=== PATIENT | male | born 1985 | race American Indian/Alaskan Native ===

== ENCOUNTER 2016-06-29 16:51 | Emergency (ER) | payer SELFPAY ==
[2016-06-29] MEDS ORDERED: TORADOL IM ONE (20:00)
[2016-06-29] MEDS ORDERED: VALIUM PO ONE (20:00)
--- NOTE | 2016-06-29 20:03 | Emergency Department Report ---
Upper Extremity - HPI Chief Complaint: Extremity Injury, Upper Stated Complaint: RT ARM PAIN Time Seen by Provider: 06/29/16 19:59 Upper Extremity: Right Wrist Occurred When: >5 Days Severity: moderate Symptoms: Yes Pain with Movement, Yes Limited Range of Movement, Yes Swelling, No Deformity, No Numbness, No Weakness Other History: 30-year-old male past medical history none presents with complaint of 1-1/2 weeks of right distal forearm and wrist pain. Patient states that area above his right wrist feels very sore, has some difficulty ranging right wrist extending right wrist. Animal swelling generally to region. Denies any fever or chills, denies any direct trauma. Works as a hairdresser and plays instruments, states that during course of playing instruments this week pain became worse and right wrist region. ED Review of Systems ROS: Stated complaint: RT ARM PAIN Other details as noted in HPI ED Past Medical Hx - Past Medical History Previous Medical History?: Yes Hx Hypertension: Yes Hx Kidney Stones: Yes - Surgical History Past Surgical History?: Yes Additional Surgical History: finger - Social History Smoking Status: Current Every Day Smoker Substance Use Type: Alcohol - Medications Home Medications: Home Medications Medication Instructions Recorded Confirmed Last Taken Type Ibuprofen [Motrin] 800 mg PO Q8HR PRN #30 tablet 03/10/15 Unknown Rx traMADol [Ultram] 50 mg PO Q6HR PRN #20 tablet 03/10/15 Unknown Rx Acetaminophen/Codeine [Tylenol #3] 1 tab PO Q6H PRN #20 tab 05/02/15 Unknown Rx Cyclobenzaprine HCl [Flexeril 5 MG 5 mg PO Q8HR PRN #12 tab 10/17/15 Unknown Rx TAB] Cyclobenzaprine [Flexeril] 10 mg PO TID PRN #15 tablet 06/29/16 Unknown Rx Naproxen [Naprosyn TAB] 500 mg PO BID PRN #25 tablet 06/29/16 Unknown Rx Upper Extremity Exam - Exam General: Vital signs noted. No distress. Alert and acting appropriately. Head and Torso: No HEENT Abnormality, No Neck Tenderness, No Chest/Lungs Abnormality, No Abdominal Tenderness, No Back Tenderness Shoulder Exam: Yes Normal Range of Motion in Shoulder, No Shoulder Tenderness, No Clavicle Tenderness, No Shoulder Deformity, No AC Joint Tenderness Arm Exam: No Arm/Humerus Tenderness, No Arm Deformity Elbow: No Elbow Tenderness, No Normal Range of Motion in Elbow, No Elbow Deformity Forearm: Yes Forearm Tenderness (slight distal forearm tenderness on extensor side), No Forearm Deformity, No Pain with Pronation, No Pain with Supination Wrist: Yes Wrist Tenderness (slight tenderness distal ulnar region on deep palpation), Yes Normal ROM in Wrist, No Wrist Deformity, No Snuffbox Tenderness (patient does not have any snuffbox tenderness on exam), No Pain with Axial Thumb Compression Hand: Yes Hand Tenderness (minor amount of tenderness on the dorsal aspect of hand), Yes Normal ROM in Digit(s), No Hand Deformity, No Digit Tenderness, No Digit(s) Deformity, No Tendon Dysfunction CMS Exam: Yes Normal Distal Pulses (strong distal radial and ulnar pulses on palpation), Yes Normal Capillary Refill (capillary refill less than one second all fingers), Yes Normal Distal Sensation (normal sensation to touch and proprioception in all fingers), No Broken Skin ED Course Vital Signs 06/29/16 17:14 Temperature 98.3 F Pulse Rate 82 Respiratory 18 Rate Blood Pressure 136/75 O2 Sat by Pulse 95 Oximetry ED Medical Decision Making - Medical Decision Making A/P: Right forearm and wrist tendinitis 1-case discussed with Dr. Sanderson who also examined patient, distal wrist and forearm neurovascularly intact capillary refill less than one second all digits range of motion all digits intact no signs of erythema or cellulitis on clinical inspection distal radial pulse and ulnar pulses strong and intact. Dr. Sanderson agrees there are no signs of infection cellulitis or appearance of infectious tenosynovitis based on clinical exam. 2-Kem wrap, RICE therapy, naproxen and Flexeril when necessary short course 3-referral to primary care and orthopedics 4-I educated patient on signs of cellulitis and showed him pictures advised them that if he notices any signs of cellulitis redness significant pallor or if skin becomes hot to touch to return to the ED. Patient expressed understanding of these instructions Critical care attestation.: If time is entered above; I have spent that time in minutes in the direct care of this critically ill patient, excluding procedure time. ED Disposition Clinical Impression: Wrist tendonitis Disposition: DISCHARGED TO HOME OR SELFCARE Is pt being admited?: No Does the pt Need Aspirin: No Condition: Stable Instructions: Tendinitis (ED), RICE Therapy (ED) Prescriptions: Cyclobenzaprine [Flexeril] 10 mg PO TID PRN #15 tablet PRN Reason: Muscle Spasm Naproxen [Naprosyn TAB] 500 mg PO BID PRN #25 tablet PRN Reason: Pain Referrals: [facility] [Provider Group] - 3-5 Days EDUARD AVILES MD [Staff Physician] - 3-5 Days LU ZAYAS MD [Staff Physician] - 3-5 Days Forms: Accompanied Note, Work/School Release Form(ED) Time of Disposition: 21:17
--- NOTE | 2016-06-29 21:02 | XRay Report ---
FINAL REPORT PROCEDURE: XR WRIST 2V RT TECHNIQUE: RIGHT wrist radiographs, AP and lateral views. X-ray wrist HISTORY: wrist pain and swelling COMPARISON: No prior studies are available for comparison. FINDINGS: Fracture(s)and/or Dislocation(s): None. Alignment: Normal. Joint space(s): Normal. Soft tissues: Normal. Bone mineralization: Normal. Foreign bodies: None. IMPRESSION: Normal Examination
[2016-06-29 21:36] VITALS: BP 136/79
== END 2016-06-29 21:35 | disposition home or self-care (01) ==
LOC: ED 16:51
DX: M77.9 Enthesopathy, unspecified (principal); I10 Essential (primary) hypertension; F17.200 Nicotine dependence, unspecified, uncomplicated
CPT/HCPCS: 29125; 73100; 96372; 99284; J1885

== ENCOUNTER 2016-07-21 21:59 | Emergency (ER) | payer OTHER ==
[2016-07-21] MEDS ORDERED: TYLENOL ONE (22:46)
[2016-07-21] MEDS ORDERED: TYLENOL PO ONE (22:49)
[2016-07-22] MEDS ORDERED: MOTRIN PO ONE (03:36)
--- NOTE | 2016-07-22 03:37 | Emergency Department Report ---
- General Chief Complaint: Upper Respiratory Infection Stated Complaint: COUGH/CHEST DISCOMFORT Time Seen by Provider: 07/22/16 03:01 Source: patient Mode of arrival: Ambulatory Limitations: No Limitations - History of Present Illness Initial Comments: 30-year-old male smoker presents with 2 days of fevers chills body aches productive cough sore throat. Patient states cough has greenish yellow sputum. Is awake alert and oriented 3 denies any chest pain but states he feels very congested. Denies any recent travel and smokes daily. MD Complaint: fever, cough Onset/Timin -: days(s) Severity: moderate Severity scale (0 -10): 6 Consistency: constant - Related Data Previous Rx's Medication Instructions Recorded Last Taken Type Ibuprofen [Motrin] 800 mg PO Q8HR PRN #30 tablet 03/10/15 Unknown Rx traMADol [Ultram] 50 mg PO Q6HR PRN #20 tablet 03/10/15 Unknown Rx Acetaminophen/Codeine [Tylenol #3] 1 tab PO Q6H PRN #20 tab 05/02/15 Unknown Rx Cyclobenzaprine HCl [Flexeril 5 MG 5 mg PO Q8HR PRN #12 tab 10/17/15 Unknown Rx TAB] Cyclobenzaprine [Flexeril] 10 mg PO TID PRN #15 tablet 06/29/16 Unknown Rx Naproxen [Naprosyn TAB] 500 mg PO BID PRN #25 tablet 06/29/16 Unknown Rx ALBUTEROL Inhaler [ProAir HFA 1 puff IH Q4H PRN #1 inha 07/22/16 Unknown Rx Inhaler] Azithromycin [Zithromax Z-AJ] 250 mg PO QDAY #6 tablet 07/22/16 Unknown Rx Naproxen [Naprosyn TAB] 500 mg PO BID PRN #25 tablet 07/22/16 Unknown Rx guaiFENesin DM [Robitussin Dm] 10 ml PO Q6HR PRN #1 bottle 07/22/16 Unknown Rx Allergies Allergy/AdvReac Type Severity Reaction Status Date / Time lisinopril Allergy Itching Verified 02/19/15 12:49 ED Review of Systems ROS: Stated complaint: COUGH/CHEST DISCOMFORT Other details as noted in HPI Constitutional: denies: chills, fever Eyes: denies: eye pain, eye discharge, vision change ENT: denies: ear pain, throat pain Respiratory: denies: cough, shortness of breath, wheezing Cardiovascular: denies: chest pain, palpitations Endocrine: no symptoms reported Gastrointestinal: denies: abdominal pain, nausea, diarrhea Genitourinary: denies: urgency, dysuria Musculoskeletal: denies: back pain, joint swelling, arthralgia Skin: denies: rash, lesions Neurological: denies: headache, weakness, paresthesias Psychiatric: denies: anxiety, depression Hematological/Lymphatic: denies: easy bleeding, easy bruising ED Past Medical Hx - Past Medical History Hx Hypertension: Yes Hx Kidney Stones: Yes - Surgical History Additional Surgical History: finger - Social History Smoking Status: Current Every Day Smoker Substance Use Type: None - Medications Home Medications: Home Medications Medication Instructions Recorded Confirmed Last Taken Type Ibuprofen [Motrin] 800 mg PO Q8HR PRN #30 tablet 03/10/15 Unknown Rx traMADol [Ultram] 50 mg PO Q6HR PRN #20 tablet 03/10/15 Unknown Rx Acetaminophen/Codeine [Tylenol #3] 1 tab PO Q6H PRN #20 tab 05/02/15 Unknown Rx Cyclobenzaprine HCl [Flexeril 5 MG 5 mg PO Q8HR PRN #12 tab 10/17/15 Unknown Rx TAB] Cyclobenzaprine [Flexeril] 10 mg PO TID PRN #15 tablet 06/29/16 Unknown Rx Naproxen [Naprosyn TAB] 500 mg PO BID PRN #25 tablet 06/29/16 Unknown Rx ALBUTEROL Inhaler [ProAir HFA 1 puff IH Q4H PRN #1 inha 07/22/16 Unknown Rx Inhaler] Azithromycin [Zithromax Z-AJ] 250 mg PO QDAY #6 tablet 07/22/16 Unknown Rx Naproxen [Naprosyn TAB] 500 mg PO BID PRN #25 tablet 07/22/16 Unknown Rx guaiFENesin DM [Robitussin Dm] 10 ml PO Q6HR PRN #1 bottle 07/22/16 Unknown Rx ED Physical Exam - General Limitations: No Limitations General appearance: alert, in no apparent distress - Head Head exam: Present: atraumatic, normocephalic - Eye Eye exam: Present: normal appearance, PERRL, EOMI - ENT ENT exam: Present: mucous membranes moist - Neck Neck exam: Present: normal inspection, full ROM - Respiratory Respiratory exam: Present: decreased breath sounds. Absent: respiratory distress - Cardiovascular Cardiovascular Exam: Present: regular rate, normal rhythm. Absent: systolic murmur, diastolic murmur, rubs, gallop - GI/Abdominal GI/Abdominal exam: Present: soft, normal bowel sounds - Rectal Rectal exam: Present: deferred - Extremities Exam Extremities exam: Present: normal inspection - Back Exam Back exam: Present: normal inspection - Neurological Exam Neurological exam: Present: alert, oriented X3 - Psychiatric Psychiatric exam: Present: normal affect, normal mood - Skin Skin exam: Present: warm, dry, intact, normal color. Absent: rash ED Course Vital Signs 07/21/16 07/22/16 22:42 03:59 Temperature 101.8 F H Pulse Rate 103 H Respiratory 18 20 Rate Blood Pressure 124/78 Blood Pressure 124/78 [Left] O2 Sat by Pulse 98 Oximetry ED Medical Decision Making - Medical Decision Making A/P: Acute bronchitis 1-I reviewed his chest x-ray with , no evidence of pneumonia as per our read 2- azithromycin pack 3- albuterol when necessary, naproxen when necessary 4- follow up with primary care doctor 5- I educated patient on smoking cessation Critical care attestation.: If time is entered above; I have spent that time in minutes in the direct care of this critically ill patient, excluding procedure time. ED Disposition Clinical Impression: Bronchitis Disposition: DISCHARGED TO HOME OR SELFCARE Is pt being admited?: No Does the pt Need Aspirin: No Condition: Stable Instructions: Acute Bronchitis (ED) Prescriptions: ALBUTEROL Inhaler [ProAir HFA Inhaler] 1 puff IH Q4H PRN #1 inha PRN Reason: Cough Azithromycin [Zithromax Z-AJ] 250 mg PO QDAY #6 tablet guaiFENesin DM [Robitussin Dm] 10 ml PO Q6HR PRN #1 bottle PRN Reason: Cough Naproxen [Naprosyn TAB] 500 mg PO BID PRN #25 tablet PRN Reason: Fever Referrals: BREANNA DELVALLE MD [Staff Physician] - 3-5 Days [facility] [Outside] - 3-5 Days Forms: Work/School Release Form(ED) Time of Disposition: 06:02
[2016-07-22] MEDS ORDERED: ROBITUSSIN DM PO ONE (03:59)
[2016-07-22 06:17] VITALS: BP 124/80
--- NOTE | 2016-07-22 07:48 | XRay Report ---
CHEST 2 VIEWS INDICATION: Worsening cough. COMPARISON: None similar. FINDINGS: PA and lateral chest radiographs demonstrate poor inspiration with slight exaggerated cardiomediastinal silhouette and crowded lung markings toward the bases. No focal consolidation, pleural effusions or CHF. Unremarkable bones. CONCLUSION: No definite acute chest process, as described. Thank you for the opportunity to participate in this patient's care.
== END 2016-07-22 06:18 | disposition home or self-care (01) ==
LOC: ED 21:59
DX: J40 Bronchitis, not specified as acute or chronic (principal); I10 Essential (primary) hypertension; F17.200 Nicotine dependence, unspecified, uncomplicated
CPT/HCPCS: 71020; 87400; 99283

== ENCOUNTER 2016-11-08 07:03 | Emergency (ER) | payer SELFPAY ==
[2016-11-08 07:21] VITALS: BP 140/96
[2016-11-08 07:47] LABS: Basophils % (Auto) 0.7 % (0.0-1.8); Eosinophils % (Auto) 0.8 % (0.0-4.3); Hematocrit 53.2 % (35.5-45.6); Hemoglobin 17.8 gm/dl (11.8-15.2); Mean Corpuscular HGB Conc 34 % (32-34); Mean Corpuscular Hemoglobin 32 pg (28-32); Mean Corpuscular Volume 94 fl (84-94); Platelet Count 213 K/mm3 (140-440); Red Blood Count 5.63 M/mm3 (3.65-5.03); Red Cell Distribution Width 16.2 % (13.2-15.2); White Blood Count 8.7 K/mm3 (4.5-11.0)
[2016-11-08 08:04] LABS: Anion Gap 18 mmol/L; BUN/Creatinine Ratio 11.53; Blood Urea Nitrogen 15 mg/dL (9-20); Calcium 9.5 mg/dL (8.4-10.2); Carbon Dioxide 25 mmol/L (22-30); Chloride 98.6 mmol/L (98-107); Glucose 113 mg/dL (75-100); Sodium 138 mmol/L (137-145)
[2016-11-08 08:13] LABS: Bilirubin,Urine NEG (Negative); Blood,Urine NEG (Negative); Ketones,Urine NEG (Negative); Leukocyte Esterase,Urine NEG (Negative); Mucus,Urine 1+ /HPF; Nitrite,Urine NEG (Negative); Protein,Urine <15 mg/dL mg/dL (Negative); Urobilinogen,Urine < 2.0 mg/dL (<2.0)
[2016-11-08] MEDS ORDERED: XYLOCAINE 1% MPF 5 mL INFILTRATI ONE (08:38)
[2016-11-08] MEDS ORDERED: ROCEPHIN IM ONE (08:38)
[2016-11-08] MEDS ORDERED: ZITHROMAX PO ONE (08:38)
--- NOTE | 2016-11-08 09:10 | Emergency Department Report ---
ED General Adult HPI - General Chief complaint: Urogenital-Male Stated complaint: STOMACH PAIN/PAINFUL URINATION/HEADACHE Time Seen by Provider: 11/08/16 08:19 Source: patient Mode of arrival: Ambulatory Limitations: No Limitations - History of Present Illness Initial comments: PT state that him and his partner were tested and dx with gonorrhea 1 week ago. PT states they were both treated at another ED with a shot of PCN. PT states that the symptoms he was having (stomach cramps, dysuria, diarrhea, and discharge) improved and then for 2 days they have started to return. PT states he did return to having sexual intercourse less than one week from treatment and has not used protection. PT states he had 1 episode of green diarrhea yesterday. PT reports a hx of Syphilis and htn. PT states he takes hctz daily MD Complaint: STD Onset/Timin -: Gradual, days(s) (of current symptoms ) Location: genitals Improves with: medication (PCN shot from other ED ) Associated Symptoms: headaches (mild, yesterday ), loss of appetite, malaise. denies: fever/chills, nausea/vomiting, syncope, weakness - Related Data Previous Rx's Medication Instructions Recorded Last Taken Type Ibuprofen [Motrin] 800 mg PO Q8HR PRN #30 tablet 03/10/15 Unknown Rx traMADol [Ultram] 50 mg PO Q6HR PRN #20 tablet 03/10/15 Unknown Rx Acetaminophen/Codeine [Tylenol #3] 1 tab PO Q6H PRN #20 tab 05/02/15 Unknown Rx Cyclobenzaprine HCl [Flexeril 5 MG 5 mg PO Q8HR PRN #12 tab 10/17/15 Unknown Rx TAB] Cyclobenzaprine [Flexeril] 10 mg PO TID PRN #15 tablet 06/29/16 Unknown Rx Naproxen [Naprosyn TAB] 500 mg PO BID PRN #25 tablet 06/29/16 Unknown Rx ALBUTEROL Inhaler [ProAir HFA 1 puff IH Q4H PRN #1 inha 07/22/16 Unknown Rx Inhaler] Azithromycin [Zithromax Z-AJ] 250 mg PO QDAY #6 tablet 07/22/16 Unknown Rx Naproxen [Naprosyn TAB] 500 mg PO BID PRN #25 tablet 03/24/17 Unknown Rx guaiFENesin DM [Robitussin Dm] 10 ml PO Q6HR PRN #1 bottle 07/22/16 Unknown Rx Allergies Allergy/AdvReac Type Severity Reaction Status Date / Time lisinopril Allergy Itching Verified 02/19/15 12:49 ED Review of Systems ROS: Stated complaint: STOMACH PAIN/PAINFUL URINATION/HEADACHE Other details as noted in HPI Comment: All other systems reviewed and negative Constitutional: malaise. denies: fever Gastrointestinal: abdominal pain (mild), diarrhea (pt states he had increased stools yesterday, with 1 episode of green diarrhea ). denies: nausea, vomiting , constipation, hematemesis, melena, hematochezia Genitourinary: dysuria, discharge. denies: testicular pain, testicular mass ED Past Medical Hx - Past Medical History Previous Medical History?: Yes Hx Hypertension: Yes Hx Kidney Stones: Yes - Surgical History Past Surgical History?: Yes Additional Surgical History: finger - Social History Smoking Status: Former Smoker Substance Use Type: Prescribed - Medications Home Medications: Home Medications Medication Instructions Recorded Confirmed Last Taken Type Ibuprofen [Motrin] 800 mg PO Q8HR PRN #30 tablet 03/10/15 Unknown Rx traMADol [Ultram] 50 mg PO Q6HR PRN #20 tablet 03/10/15 Unknown Rx Acetaminophen/Codeine [Tylenol #3] 1 tab PO Q6H PRN #20 tab 05/02/15 Unknown Rx Cyclobenzaprine HCl [Flexeril 5 MG 5 mg PO Q8HR PRN #12 tab 10/17/15 Unknown Rx TAB] Cyclobenzaprine [Flexeril] 10 mg PO TID PRN #15 tablet 06/29/16 Unknown Rx Naproxen [Naprosyn TAB] 500 mg PO BID PRN #25 tablet 06/29/16 Unknown Rx ALBUTEROL Inhaler [ProAir HFA 1 puff IH Q4H PRN #1 inha 07/22/16 Unknown Rx Inhaler] Azithromycin [Zithromax Z-AJ] 250 mg PO QDAY #6 tablet 07/22/16 Unknown Rx Naproxen [Naprosyn TAB] 500 mg PO BID PRN #25 tablet 07/22/16 Unknown Rx guaiFENesin DM [Robitussin Dm] 10 ml PO Q6HR PRN #1 bottle 03/24/17 Unknown Rx ED Physical Exam - General Limitations: No Limitations General appearance: alert, in no apparent distress - Head Head exam: Present: atraumatic, normocephalic, normal inspection - Eye Eye exam: Present: normal appearance, PERRL, EOMI. Absent: conjunctival injection - ENT ENT exam: Present: normal exam, normal orophraynx, normal external ear exam - Neck Neck exam: Present: normal inspection, full ROM - Respiratory Respiratory exam: Present: normal lung sounds bilaterally. Absent: respiratory distress, chest wall tenderness - Cardiovascular Cardiovascular Exam: Present: regular rate, normal rhythm, normal heart sounds - GI/Abdominal GI/Abdominal exam: Present: soft, normal bowel sounds, other (pt states LLQ is where discomfort is ). Absent: tenderness, guarding, rebound - Extremities Exam Extremities exam: Present: normal inspection, full ROM - Back Exam Back exam: Present: normal inspection, full ROM. Absent: tenderness, CVA tenderness (R), CVA tenderness (L) - Neurological Exam Neurological exam: Present: alert, oriented X3 - Psychiatric Psychiatric exam: Present: normal affect, normal mood - Skin Skin exam: Present: warm, dry, intact, normal color ED Course Vital Signs 11/08/16 07:16 Temperature 98.1 F Pulse Rate 84 Respiratory 20 Rate Blood Pressure 140/96 O2 Sat by Pulse 100 Oximetry - Reevaluation(s) Reevaluation #1: 11/08/16 09:13 PT aware that he is not to resume sexual activity for at least a week. PT advised to follow up with health dept to obtain a test of cure. PT aware that his partner will need repeat testing/ treatment as they did not wait sufficient time before resuming sexual activity. PT also encouraged to follow up with full panel STD testing. Reevaluation #2: 11/08/16 09:18 PT eloped after receiving empiric treatment for gc and ct - Pulse Oximetry Interpretation Digit-Finger Initial Pulse Oximetry Readin ED Medical Decision Making - Lab Data Result diagrams: 11/08/16 07:32 11/08/16 07:32 Labs 11/08/16 11/08/16 11/08/16 07:32 07:32 07:48 WBC 8.7 RBC 5.63 H Hgb 17.8 H Hct 53.2 H MCV 94 MCH 32 MCHC 34 RDW 16.2 H Plt Count 213 Lymph % (Auto) 23.3 [place] % (Auto) 9.6 H Eos % (Auto) 0.8 Baso % (Auto) 0.7 Lymph # 2.0 [place] # 0.8 Eos # 0.1 Baso # 0.1 Seg Neutrophils % 65.6 Seg Neutrophils # 5.7 Sodium 138 Potassium 4.0 Chloride 98.6 Carbon Dioxide 25 Anion Gap 18 BUN 15 Creatinine 1.3 Estimated GFR > 60 BUN/Creatinine Ratio 11.53 Glucose 113 H Calcium 9.5 Urine Color Yellow Urine Turbidity Clear Urine pH 5.0 Ur Specific [place] 1.018 Urine Protein <15 mg/dl Urine Glucose (UA) Neg Urine Ketones Neg Urine Blood Neg Urine Nitrite Neg Urine Bilirubin Neg Urine Urobilinogen < 2.0 Ur Leukocyte Esterase Neg Urine WBC (Auto) 1.0 Urine RBC (Auto) 4.0 Urine Mucus 1+ - Differential Diagnosis STD, diarrhea, uti Critical Care Time: No Critical care attestation.: If time is entered above; I have spent that time in minutes in the direct care of this critically ill patient, excluding procedure time. ED Disposition Clinical Impression: Possible exposure to STD Diarrhea Qualifiers: Diarrhea type: unspecified type Qualified Code(s): R19.7 - Diarrhea, unspecified Disposition: ELOPED Is pt being admited?: No Does the pt Need Aspirin: No Condition: Stable Referrals: PRIMARY CARE, [Primary Care Provider] - 3-5 Days
== END 2016-11-08 09:03 | disposition left against medical advice (07) ==
LOC: ED 07:03
DX: R19.7 Diarrhea, unspecified (principal); I10 Essential (primary) hypertension; Z88.8 Allergy status to other drugs, medicaments and biological substances; Z20.2 Contact with and (suspected) exposure to infections with a predominantly sexual mode of transmission
CPT/HCPCS: 36415; 80048; 81001; 85025; 87591; 96372; 99283; J0696

== ENCOUNTER 2016-12-10 13:41 | Emergency (ER) | payer SELFPAY ==
[2016-12-10 14:43] VITALS: BP 145/91
[2016-12-10 15:27] LABS: Bilirubin,Urine NEG (Negative); Blood,Urine NEG (Negative); Ketones,Urine NEG (Negative); Leukocyte Esterase,Urine NEG (Negative); Mucus,Urine FEW /HPF; Nitrite,Urine NEG (Negative); Protein,Urine <15 mg/dL mg/dL (Negative); Urobilinogen,Urine < 2.0 mg/dL (<2.0); WBC,Urine < 1.0 /HPF (0.0-6.0)
--- NOTE | 2016-12-10 20:04 | Emergency Department Report ---
Abscess Boil HPI - [facility] Chief Complaint: Skin/Abscess/Foreign Body Stated Complaint: POSS STD Time Seen by Provider: 12/10/16 19:18 Duration: Today Location: Sacral/Pilonidal Severity: Mild Home Medications: Previous Rx's Medication Instructions Recorded Last Taken Type Ibuprofen [Motrin] 800 mg PO Q8HR PRN #30 tablet 03/10/15 Unknown Rx traMADol [Ultram] 50 mg PO Q6HR PRN #20 tablet 03/10/15 Unknown Rx Acetaminophen/Codeine [Tylenol #3] 1 tab PO Q6H PRN #20 tab 05/02/15 Unknown Rx Cyclobenzaprine HCl [Flexeril 5 MG 5 mg PO Q8HR PRN #12 tab 10/17/15 Unknown Rx TAB] Cyclobenzaprine [Flexeril] 10 mg PO TID PRN #15 tablet 06/29/16 Unknown Rx Naproxen [Naprosyn TAB] 500 mg PO BID PRN #25 tablet 06/29/16 Unknown Rx ALBUTEROL Inhaler [ProAir HFA 1 puff IH Q4H PRN #1 inha 07/22/16 Unknown Rx Inhaler] Azithromycin [Zithromax Z-AJ] 250 mg PO QDAY #6 tablet 07/22/16 Unknown Rx Naproxen [Naprosyn TAB] 500 mg PO BID PRN #25 tablet 07/22/16 Unknown Rx guaiFENesin DM [Robitussin Dm] 10 ml PO Q6HR PRN #1 bottle 07/22/16 Unknown Rx Allergies/Adverse Reactions: Allergies Allergy/AdvReac Type Severity Reaction Status Date / Time lisinopril Allergy Itching Verified 02/19/15 12:49 ED Review of Systems ROS: Stated complaint: POSS STD Other details as noted in HPI ED Past Medical Hx - Past Medical History Hx Hypertension: Yes Hx Kidney Stones: Yes - Surgical History Additional Surgical History: finger - Social History Smoking Status: Current Every Day Smoker Substance Use Type: Alcohol - Medications Home Medications: Home Medications Medication Instructions Recorded Confirmed Last Taken Type Ibuprofen [Motrin] 800 mg PO Q8HR PRN #30 tablet 03/10/15 Unknown Rx traMADol [Ultram] 50 mg PO Q6HR PRN #20 tablet 03/10/15 Unknown Rx Acetaminophen/Codeine [Tylenol #3] 1 tab PO Q6H PRN #20 tab 05/02/15 Unknown Rx Cyclobenzaprine HCl [Flexeril 5 MG 5 mg PO Q8HR PRN #12 tab 10/17/15 Unknown Rx TAB] Cyclobenzaprine [Flexeril] 10 mg PO TID PRN #15 tablet 06/29/16 Unknown Rx Naproxen [Naprosyn TAB] 500 mg PO BID PRN #25 tablet 06/29/16 Unknown Rx ALBUTEROL Inhaler [ProAir HFA 1 puff IH Q4H PRN #1 inha 07/22/16 Unknown Rx Inhaler] Azithromycin [Zithromax Z-AJ] 250 mg PO QDAY #6 tablet 07/22/16 Unknown Rx Naproxen [Naprosyn TAB] 500 mg PO BID PRN #25 tablet 07/22/16 Unknown Rx guaiFENesin DM [Robitussin Dm] 10 ml PO Q6HR PRN #1 bottle 07/22/16 Unknown Rx ED Abscess Boil Physical Exam - Exam General: Vital signs noted. No distress. Alert and acting appropriately. ED Course Vital Signs 12/10/16 14:27 Temperature 98.8 F Pulse Rate 94 H Blood Pressure 145/91 O2 Sat by Pulse 97 Oximetry Critical care attestation.: If time is entered above; I have spent that time in minutes in the direct care of this critically ill patient, excluding procedure time. ED Disposition Condition: Stable Referrals: PRIMARY CARE, [Primary Care Provider] - 3-5 Days
[2016-12-10] MEDS ORDERED: XYLOCAINE 1% MPF 5 mL ONE (20:27)
[2016-12-10] MEDS ORDERED: XYLOCAINE 1% MPF 5 mL INFILTRATI ONE (20:44)
[2016-12-10] MEDS ORDERED: ROCEPHIN IM ONE (20:44)
--- NOTE | 2016-12-10 22:24 | Emergency Department Report ---
Entered by CHRISTIANO GONGORA, acting as scribe for LU ABDI PA. - General Chief complaint: Skin/Abscess/Foreign Body Stated complaint: POSS STD Time Seen by Provider: 12/10/16 19:18 Source: patient Mode of arrival: Ambulatory Limitations: No Limitations - History of Present Illness Initial comments: 30 y/o male presents to the ED c/o abscess to right buttock x 3 days. Associated symptoms include pain but he denies fever, chills, nausea, vomiting, dysuria, discharge and drainage. Patient states he was [facility]. No alleviating or aggravating factors. NKDA. SABILLON complaint: abscess/boil (to right buttock) Onset/Timin -: days(s) Location: buttocks Severity: moderate Consistency: constant Improves with: none Worsens with: none Context: none Associated symptoms: other (pain, denies: fever, chills, nausea, vomiting, dysuria, discharge and drainage) Treatments Prior to Arrival: none - Related Data Previous Rx's Medication Instructions Recorded Last Taken Type Ibuprofen [Motrin] 800 mg PO Q8HR PRN #30 tablet 03/10/15 Unknown Rx traMADol [Ultram] 50 mg PO Q6HR PRN #20 tablet 03/10/15 Unknown Rx Acetaminophen/Codeine [Tylenol #3] 1 tab PO Q6H PRN #20 tab 05/02/15 Unknown Rx Cyclobenzaprine HCl [Flexeril 5 MG 5 mg PO Q8HR PRN #12 tab 10/17/15 Unknown Rx TAB] Cyclobenzaprine [Flexeril] 10 mg PO TID PRN #15 tablet 06/29/16 Unknown Rx Naproxen [Naprosyn TAB] 500 mg PO BID PRN #25 tablet 06/29/16 Unknown Rx ALBUTEROL Inhaler [ProAir HFA 1 puff IH Q4H PRN #1 inha 07/22/16 Unknown Rx Inhaler] Azithromycin [Zithromax Z-AJ] 250 mg PO QDAY #6 tablet 07/22/16 Unknown Rx Naproxen [Naprosyn TAB] 500 mg PO BID PRN #25 tablet 07/22/16 Unknown Rx guaiFENesin DM [Robitussin Dm] 10 ml PO Q6HR PRN #1 bottle 07/22/16 Unknown Rx Ibuprofen [Motrin] 800 mg PO Q8HR PRN #25 tablet 12/10/16 Unknown Rx Sulfamethoxazole/Trimethoprim 1 each PO BID #14 tablet 12/10/16 Unknown Rx [Bactrim DS TAB] Allergies Allergy/AdvReac Type Severity Reaction Status Date / Time lisinopril Allergy Itching Verified 02/19/15 12:49 Abscess Boil HPI - HPI Chief Complaint: Skin/Abscess/Foreign Body Stated Complaint: POSS STD Time Seen by Provider: 12/10/16 19:18 Home Medications: Previous Rx's Medication Instructions Recorded Last Taken Type Ibuprofen [Motrin] 800 mg PO Q8HR PRN #30 tablet 03/10/15 Unknown Rx traMADol [Ultram] 50 mg PO Q6HR PRN #20 tablet 03/10/15 Unknown Rx Acetaminophen/Codeine [Tylenol #3] 1 tab PO Q6H PRN #20 tab 05/02/15 Unknown Rx Cyclobenzaprine HCl [Flexeril 5 MG 5 mg PO Q8HR PRN #12 tab 10/17/15 Unknown Rx TAB] Cyclobenzaprine [Flexeril] 10 mg PO TID PRN #15 tablet 06/29/16 Unknown Rx Naproxen [Naprosyn TAB] 500 mg PO BID PRN #25 tablet 06/29/16 Unknown Rx ALBUTEROL Inhaler [ProAir HFA 1 puff IH Q4H PRN #1 inha 07/22/16 Unknown Rx Inhaler] Azithromycin [Zithromax Z-AJ] 250 mg PO QDAY #6 tablet 07/22/16 Unknown Rx Naproxen [Naprosyn TAB] 500 mg PO BID PRN #25 tablet 07/22/16 Unknown Rx guaiFENesin DM [Robitussin Dm] 10 ml PO Q6HR PRN #1 bottle 07/22/16 Unknown Rx Ibuprofen [Motrin] 800 mg PO Q8HR PRN #25 tablet 12/10/16 Unknown Rx Sulfamethoxazole/Trimethoprim 1 each PO BID #14 tablet 12/10/16 Unknown Rx [Bactrim DS TAB] Allergies/Adverse Reactions: Allergies Allergy/AdvReac Type Severity Reaction Status Date / Time lisinopril Allergy Itching Verified 02/19/15 12:49 ED Review of Systems Comment: All other systems reviewed and negative Constitutional: denies: chills, fever Gastrointestinal: denies: nausea, vomiting Genitourinary: denies: dysuria, discharge Skin: other (abscess and pain, denies: drainage) ED Past Medical Hx - Past Medical History Hx Hypertension: Yes Hx Kidney Stones: Yes - Surgical History Additional Surgical History: finger - Social History Smoking Status: Current Every Day Smoker Substance Use Type: Alcohol - Medications Home Medications: Home Medications Medication Instructions Recorded Confirmed Last Taken Type Ibuprofen [Motrin] 800 mg PO Q8HR PRN #30 tablet 03/10/15 Unknown Rx traMADol [Ultram] 50 mg PO Q6HR PRN #20 tablet 03/10/15 Unknown Rx Acetaminophen/Codeine [Tylenol #3] 1 tab PO Q6H PRN #20 tab 05/02/15 Unknown Rx Cyclobenzaprine HCl [Flexeril 5 MG 5 mg PO Q8HR PRN #12 tab 10/17/15 Unknown Rx TAB] Cyclobenzaprine [Flexeril] 10 mg PO TID PRN #15 tablet 06/29/16 Unknown Rx Naproxen [Naprosyn TAB] 500 mg PO BID PRN #25 tablet 06/29/16 Unknown Rx ALBUTEROL Inhaler [ProAir HFA 1 puff IH Q4H PRN #1 inha 07/22/16 Unknown Rx Inhaler] Azithromycin [Zithromax Z-AJ] 250 mg PO QDAY #6 tablet 07/22/16 Unknown Rx Naproxen [Naprosyn TAB] 500 mg PO BID PRN #25 tablet 07/22/16 Unknown Rx guaiFENesin DM [Robitussin Dm] 10 ml PO Q6HR PRN #1 bottle 07/22/16 Unknown Rx Ibuprofen [Motrin] 800 mg PO Q8HR PRN #25 tablet 12/10/16 Unknown Rx Sulfamethoxazole/Trimethoprim 1 each PO BID #14 tablet 12/10/16 Unknown Rx [Bactrim DS TAB] ED Physical Exam - General Limitations: No Limitations General appearance: alert, in no apparent distress - Head Head exam: Present: atraumatic, normocephalic, normal inspection - Eye Eye exam: Present: normal appearance, PERRL, EOMI. Absent: scleral icterus, conjunctival injection, nystagmus, periorbital swelling, periorbital tenderness Pupils: Present: normal accommodation - ENT ENT exam: Present: normal exam, normal orophraynx, mucous membranes moist, TM's normal bilaterally, normal external ear exam - Neck Neck exam: Present: normal inspection, full ROM. Absent: tenderness, meningismus, lymphadenopathy, thyromegaly - Respiratory Respiratory exam: Present: normal lung sounds bilaterally. Absent: respiratory distress, wheezes, rales, rhonchi, stridor, chest wall tenderness, accessory muscle use, decreased breath sounds, prolonged expiratory - Cardiovascular Cardiovascular Exam: Present: regular rate, normal rhythm, normal heart sounds. Absent: bradycardia, tachycardia, irregular rhythm, systolic murmur, diastolic murmur, rubs, gallop - GI/Abdominal GI/Abdominal exam: Present: soft, normal bowel sounds. Absent: distended, tenderness, guarding, rebound, rigid, diminished bowel sounds - Extremities Exam Extremities exam: Present: normal inspection, full ROM, normal capillary refill. Absent: tenderness, pedal edema, joint swelling, calf tenderness - Back Exam Back exam: Present: normal inspection, full ROM. Absent: tenderness, CVA tenderness (R), CVA tenderness (L), muscle spasm, paraspinal tenderness, vertebral tenderness, rash noted - Neurological Exam Neurological exam: Present: alert, oriented X3, normal gait, reflexes normal - Psychiatric Psychiatric exam: Present: normal affect, normal mood - Skin Skin exam: Present: warm, dry, normal color, other (pilonidal abscess approximately 2 cm above the right gluteal cleft) ED Course Vital Signs 12/10/16 14:27 Temperature 98.8 F Pulse Rate 94 H Blood Pressure 145/91 O2 Sat by Pulse 97 Oximetry - I & D Buttocks Type of Procedure: Simple Site: pilonidal region Blade Size: 11 I & D Procedure: betadine prep, sterile drapes applied, sterile dressing applied Progress: Small vertical stab incision made one to 2 mL's of purulent drainage minimal bleeding procedure tolerated well no packing placed covered with gauze externally ED Medical Decision Making - Medical Decision Making a/p: abscess, std exposure 1- motrin, bactrim 2- pt stated that [facility], did not get ceftriaxone at [facility] this [facility], i gave him a dose here. 3- f/u with PMD. i advised pt to return to ED if abscess reaccumulates. Successful evacuation of abscess with I&D. ED Disposition Clinical Impression: Abscess, Urethritis, Pilonidal abscess Disposition: DC- TO HOME OR SELFCARE Is pt being admited?: No Does the pt Need Aspirin: No Condition: Stable Instructions: Nonspecific Urethritis in Men (ED), Chlamydia Infection (ED), Abscess (ED), Abscess Incision and Drainage (ED) Prescriptions: Ibuprofen [Motrin] 800 mg PO Q8HR PRN #25 tablet PRN Reason: Pain Sulfamethoxazole/Trimethoprim [Bactrim DS TAB] 1 each PO BID #14 tablet Referrals: [facility] [Provider Group] - 3-5 Days Forms: STI Treatment and Prevention, Work/School Release Form(ED) Time of Disposition: 21:15 This documentation as recorded by the FRANSISCA nails ELIZABETH,accurately reflects the service I personally performed and the decisions made by TRINIDAD perez RICHARD J, PA.
== END 2016-12-10 21:31 | disposition home or self-care (01) ==
LOC: ED 13:41
DX: L05.01 Pilonidal cyst with abscess (principal); N34.2 Other urethritis; I10 Essential (primary) hypertension; F17.210 Nicotine dependence, cigarettes, uncomplicated; Z88.8 Allergy status to other drugs, medicaments and biological substances
CPT/HCPCS: 10080; 81001; 87591; 96372; 99283; J0696